=== PATIENT | female | born 1975 | race Caucasian/White ===

== ENCOUNTER 2024-06-01 20:06 | Emergency (ER) | payer SELFPAY ==
[2024-06-01] MEDS ORDERED: Dexamethasone 10 MG/ML VIAL ONE (20:36)
[2024-06-01] MEDS ORDERED: Lisinopril 20 MG TAB ONE (20:41)
== END 2024-06-01 21:26 | disposition home or self-care (01) ==
LOC: ERS 20:06
DX: B34.9 Viral infection, unspecified (principal); I10 Essential (primary) hypertension; Z87.891 Personal history of nicotine dependence
CPT/HCPCS: 87081; 87428; 87430; 99283; J1100